=== PATIENT | male | born 1960 | race Caucasian/White ===

== ENCOUNTER 2024-05-12 14:18 | Outpatient (CLI) | payer OTHER | END 2024-05-12 14:19 | disposition home or self-care (01) | LOC: NAV RAD 14:18 | PROVIDERS: ATTEND Family Medicine | DX: M50.90 Cervical disc disorder, unspecified, unspecified cervical region (principal); M47.816 Spondylosis without myelopathy or radiculopathy, lumbar region; S32.019A Unspecified fracture of first lumbar vertebra, initial encounter for closed fracture | CPT/HCPCS: 72100 ==